=== PATIENT | male | born 1970 | race Caucasian/White ===

== ENCOUNTER → 2018-06-17 | Outpatient (CLI) | payer OTHER | LOC: M.ULTRA 06-15 09:00 | DX: R16.1 Splenomegaly, not elsewhere classified (principal); Z88.0 Allergy status to penicillin ==

== ENCOUNTER → 2020-11-21 | Outpatient (CLI) | payer OTHER | LOC: M.CT 10:29 | PROVIDERS: ATTEND Internal Medicine Cardiovascular Disease | DX: Z13.6 Encounter for screening for cardiovascular disorders (principal); I25.10 Atherosclerotic heart disease of native coronary artery without angina pectoris ==